=== PATIENT | female | born 1995 | race Caucasian/White ===

== ENCOUNTER 2021-05-30 11:12 | Inpatient (IN) | payer OTHER ==
[~2021-05-30] VITALS: Ht 160 cm; Wt 95.5 kg
[2021-05-31] VITALS (52 sets, daily range): BP systolic 113–158; BP diastolic 56–100; PULSE 57–111; TEMP 97.8–99.6
--- NOTE | 2021-05-31 06:30 | NUR ---
Pt arrived on unit ambulatory for scheduled induction. Pt reports occasional contractions, denies any leaking of fluid or vaginal bleeding and reports normal movement. EFM and toco monitors started. Vital signs WNL. Reviewed plan of care with induction on hold due to unit census. Pt verbalized an understanding.
[2021-05-31] MEDS ORDERED: PRENATAL (06:43)
[2021-05-31] MEDS ORDERED: OMEGA-3 1000 MG1 CAP PO (06:44)
[2021-05-31] MEDS ORDERED: ABILIFY5 MG PO (06:44)
[2021-05-31] MEDS ORDERED: OSCAL 500 TAB500 MG PO (06:45)
--- NOTE | 2021-05-31 08:45 | NUR ---
Plan of care for induction reviewed with pt and at the bedside. IV started and consents signed.
[2021-05-31 09:38] LABS: BASO % 0.5 % (0.0-2.0); EOS # 0.1 K/mm3 (0.0-0.7); EOS % 1.6 % (0.0-4.0); GRAN % 70.4 % (42.2-75.2); LYMPH # 1.5 K/mm3 (1.2-3.4); LYMPH % 17.7 % (20.0-51.0); MEAN CELL VOLUME 81 fl (80.0-100.0); MEAN CORPUSCULAR HGB CONC 33 g/dl (33.0-37.0); MEAN PLATELET VOLUME 9.9 fl (7.4-10.4); MONO # 0.7 K/mm3 (0.1-0.6); MONO % 8.5 % (1.7-9.3); PLATELET COUNT 247 K/mm3 (130-400); RED BLOOD COUNT 3.69 M/mm3 (4.10-5.30); REDCELL DISTRIBUTION WIDTH-CV 15.3 % (11.5-14.5)
[2021-05-31 09:43] LABS: HEMATOCRIT 29.9 % (37.0-47.0); HEMOGLOBIN 9.8 g/dl (12.5-16.0); MEAN CORPUSCULAR HEMOGLOBIN 27 pg (27-31)
--- NOTE | 2021-05-31 14:17 | NUR ---
1417- SUBHA Villagran at the bedside for epidural placement. Pt sitting on the edge of the bed. Time out completed. 1419- SPO2 monitor started. EFM intermittently tracing maternal HR as coorelates with SPO2 monitor. 1422- Single shot per SUBHA Villagran. See anesthesia records for details. 1430- Assisted pt back to supine position with left wedge.
--- NOTE | 2021-05-31 20:00 | NUR ---
2000- THIS RN TO BEDSIDE FOR SVE CHECK. SVE CHECK UNCHANGED. 2000- FHR NOTED TO BE DECELERATING DOWN TO THE 80S. PATIENT SAT UP FROM SVE CHECK AND TURNED TO LEFT LATERAL. 2001- FHR BETWEEN 110-120 AND SLOWLY INCREASING. THIS RN REMAINS AT BEDSIDE AT THIS TIME. 2004- PATIENT ASSISTED INTO RIGHT LATERAL POSITION WITH LEFT LEG UP IN STIRRUP. PATIENT TOLERATING WELL. FHR 120-130 AT THIS TIME WITH MODERATE VARIABILITY. PATIENT DENIES FURTHER NEEDS AT THIS TIME. CALL LIGHT WITHIN REACH.
--- NOTE | 2021-05-31 23:08 | NUR ---
2308- THIS RN TO BEDSIDE TO HELP PATIENT MOVE FROM LEFT LEG STIRRUP, RIGHT LATERAL TO RIGHT LEG STIRRUP, LEFT LATERAL. ONCE IN THE LEFT LATERAL POSITION THIS RN ADJUSTED MONITORS AND FHR WAS IN THE 80S. 2310- MATERNAL 02 SAT PLACED. FHR IN THE 80S-90S. THIS RN HELPED PATIENT ALL THE WAY TO THE LEFT SIDE AT THIS TIME. 2312- THIS RN CALLED CHARGE NURSE FOR HELP. FHR STILL IN THE 80S TO 90S. SVE COMPLETE. 2313- Zack MCNAIR, RN TO BESIDE TO ASSIST. THIS RN HAS PATIENT IN HANDS AND KNEES AT THIS POINT. PITOCIN TURNED OFF. OXYGEN MASK ON AT 10L AND FLUID BOLUS RUNNING. DR. HERRERA CALLED AND NOTIFIED BY Zack MCNAIR. THIS RN HELPING PATIENT STAY IN HANDS AND KNEES AND KEEPING FHR ON. 2314 FHR TRACING IN THE 115 RANGE WITH MODERATE VARIABILITY. 2323- THIS RN HELPS PATIENT INTO LEFT LATERAL POSITION. FHR IN THE 120S-130S RANGE WITH MODERATE VARIABILITY. 2325- DR. HERRERA AT BEDSIDE. PATIENT AND ROOM PREPPED FOR DELIVERY. ALONZO REMOVED WITH 350 URINE NOTED AT THIS TIME. 2329- 1ST PUSH WITH DR HERRERA. PATIENT PUSHES WITH DR. HERRERA DURING CONTRACTIONS. 2338- OF VIABLE MALE INFANT. PLACED TO MOTHERS ABDOMEN WHERE NURSERY NURSE ASSUMES CARE. CORD CLAMPED BY PROVIDER AND CUT BY FATHER OF THE BABY. PLACED SKIN TO SKIN WITH MOTHER. 2342- OF PLACENTA. PITOCIN ON AND RUNNING AT 333ML/HR PER PROTOCOL. FUNDUS MASSAGED TO FIRM BY PROVIDER WITH MINIMAL BLEEDING NOTED. PATIENT INTACT PER PROVIDER. 2345- FREE BLEEDING NOTED DURING CLEAN UP OF THE PATIENT AND ROOM. PROVIDER STILL IN THE ROOM AND GOWNED UP. PROVIDER MASSAGES FUNDUS AND A MODERATE AMOUNT OF LOCHIA AND CLOTS NOTED WITH THIS FUNDAL CHECK. PROVIDER DID MANUAL SWEEP TO REMOVE CLOTS INSIDE DURING THIS TIME. FUNDUS FIRM AND D1. VITALS STABLE. NEW CHUX, PERIPAD AND ICEPACK TO PERINEUM. RECOVERY STARTED.
[2021-06-01] VITALS (12 sets, daily range): BP systolic 106–147; BP diastolic 47–89; PULSE 73–106; TEMP 97.4–98.5
--- NOTE | 2021-06-01 10:10 | NUR ---
Initial visit; Parents thanked Refuge Worker for offering congratulations and God's blessings for the of their son. Refuge Worker thanked family for choosing [place].
[2021-06-02 07:35] VITALS: BP 117/78; PULSE 60; TEMP 97.8
[2021-06-02] MEDS ORDERED: IBU800 M1 PO (09:03)
--- NOTE | 2021-06-02 10:23 | NUR ---
Initial visit; Parents thanked Kosher Butcher for offering congratulations for the of their daughter. Kosher Butcher thanked family for choosing [place].
== END 2021-06-02 13:20 | disposition home or self-care (01) | DRG 807 ==
LOC: OB 05-31 06:20 → LDR 05-31 06:20 → OB 06-01 02:00
PROVIDERS: ADMIT Obstetrics & Gynecology
PROC: 10E0XZZ Delivery of Products of Conception, External Approach (ICD-10-PCS; principal; 2021-05-31)
DX: O99.344 Other mental disorders complicating childbirth (principal); Z37.0 Single live birth; F31.9 Bipolar disorder, unspecified; O99.214 Obesity complicating childbirth; Z3A.40 40 weeks gestation of pregnancy
CPT/HCPCS: J2540; J2590; J2795; J7120